=== PATIENT | male | born 1990 | race Two or more races ===

== ENCOUNTER → 2016-06-07 | Outpatient (REF) | payer OTHER ==
[2016-06-07 10:50] LABS: % NORMAL FORMS 19 % (>=4); IMMOTILITY 13 %; NON PROGRESSIVE MOTILITY (c) 14 %; PROGRESSIVE MOTILITY (a) 73 % (>=32); SPERM ABNORMAL FORMS WBC'S NOTED; SPERM# 156.1 M/Ejac (33-46); TOTAL FUNCTIONAL 43.2 M/Ejac.; TOTAL MOTILITY 87 % (>=40); TOTAL PROGRESSIVE SPERM 113.9 M/Ejac.
== END ==
LOC: M LAB REF 10:19
PROVIDERS: ATTEND Physician Assistant
DX: N46.9 Male infertility, unspecified (principal)

== ENCOUNTER → 2016-06-19 | Outpatient (CLI) | payer OTHER ==
--- NOTE | 2016-06-19 13:49 | REP ---
Limited pelvic bladder sonography: History: Urinary frequency. Findings: Scanning through the anterior aspect of the pelvis demonstrates a moderately to markedly dilated urinary bladder with pre void bladder volume calculated at 1233 mL. Postvoid there was virtually complete emptying with a 1.2%, 15.3 mL residual bladder volume. Emptying ureteral jets could not be confirmed due to the patient's urgency in the filled state. The bladder danielson are smooth. No extravesical lesion is seen. Impression: Moderately dilated pre-void bladder volume. Virtually complete emptying. No other abnormality. Signed by Yovany Red MD 06/19/2016 03:17 P
== END ==
LOC: M RAD 12:52
PROVIDERS: ATTEND Nurse Practitioner Women's Health
DX: R35.0 Frequency of micturition (principal)

== ENCOUNTER 2017-08-26 08:05 | Emergency (ER) | payer OTHER | END 2017-08-26 09:23 | disposition home or self-care (01) | LOC: M ED 08:05 | DX: S93.622A Sprain of tarsometatarsal ligament of left foot, initial encounter (principal); X58.XXXA Exposure to other specified factors, initial encounter; Y92.830 Public park as the place of occurrence of the external cause; Y93.9 Activity, unspecified; Y99.9 Unspecified external cause status | CPT/HCPCS: 73630 ==